=== PATIENT | male | born 1995 | race Two or more races ===

== ENCOUNTER 2017-11-14 17:21 | Emergency (ER) | payer OTHER ==
[~2017-11-14] VITALS: Ht 165.1 cm; Wt 77.1 kg
[2017-11-14 17:38] VITALS: BP 144/83
[2017-11-14] MEDS ORDERED: CYCL10TA2 PO (17:48)
[2017-11-14] MEDS ORDERED: DICL50TA4 PO (17:48)
--- NOTE | 2017-11-14 17:48 | PHYS DOC ---
Adult General Chief Complaint Chief Complaint: HEAD INJURY/TRAUMA [facility] HPI Patient is a 22 year old male with no significant medical history who presents today complaining of slight right lateral neck pain after being injured at work. Patient states he was carrying a long board with someone. He states the person slipped and fell and the board they were carrying hit patient on the head. Patient denies any loss of consciousness. He states his pain is worse on range of motion to the neck. Patient is Latvian-speaking and interpretation is provided by a friend Review of Systems Review of Systems Constitutional: Denies fever or chills [] Eyes: Denies change in visual acuity, redness, or eye pain [] HENT: Denies nasal congestion or sore throat [] Respiratory: Denies cough or shortness of breath [] Cardiovascular: No additional information not addressed in HPI [] GI: Denies abdominal pain, nausea, vomiting, bloody stools or diarrhea [] : Denies dysuria or hematuria [] Musculoskeletal: Reports right lateral neck pain Integument: Denies rash or skin lesions [] Neurologic: Reports head contusion. Denies headache, focal weakness or sensory changes [] All other systems were reviewed and found to be within normal limits, except as documented in this note. Physical Exam Physical Exam Constitutional: Well developed, well nourished, no acute distress, non-toxic appearance. [] HENT: Normocephalic, atraumatic, bilateral external ears normal, oropharynx moist, no oral exudates, nose normal. [] Eyes: PERRLA, EOMI, conjunctiva normal, no discharge. [] Neck: Normal range of motion, diffuse paraspinal muscle tenderness to the right lateral cervical spine, no midline cervical spine tenderness, supple, no stridor. [] Cardiovascular:Heart rate regular rhythm, no murmur [] Lungs & Thorax: Bilateral breath sounds clear to auscultation [] Abdomen: Bowel sounds normal, soft, no tenderness, no masses, no pulsatile masses. [] Skin: Warm, dry, no erythema, no rash. [] Back: No tenderness, no CVA tenderness. [] Extremities: No tenderness, no cyanosis, no clubbing, ROM intact, no edema. [] Neurologic: Alert and oriented X 3, normal motor function, normal sensory function, no focal deficits noted. Cranial nerves II through XII intact Psychologic: Affect normal, judgement normal, mood normal. [] Current Patient Data Vital Signs Vital Signs Date Time Temp Pulse Resp B/P (MAP) Pulse Ox O2 Delivery O2 Flow Rate FiO2 11/14/17 17:38 98.1 90 16 144/83 (103) 100 Room Air 98.1 EKG EKG [] Radiology/Procedures Radiology/Procedures [] Course & Med Decision Making Course & Med Decision Making Pertinent Labs and Imaging studies reviewed. (See chart for details) This is a 22-year-old male patient presenting to the ED today with head contusion and neck strain/sprain after a piece of board they were carrying fell on his head. There was no loss of consciousness, neurological exam is intact. Patient will be discharged with instructions to apply ice to the affected area. Discharged with diclofenac and cyclobenzaprine. Follow-up with PCP in 1-2 weeks. 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 Patient does not meet [facility] criteria for x-rays. Provided them explanation. They continued to ask for x-rays. Cervical spine x-rays were done interpreted by Dr. Pretty, negative for any acute findings. Same discharge information was provided. Dragon Disclaimer Dragon Disclaimer This electronic medical record was generated, in whole or in part, using a voice recognition dictation system. Departure Departure Impression: Primary Impression: Head contusion Additional Impression: Acute cervical sprain Disposition: 01 HOME, SELF-CARE Condition: STABLE Referrals: NO PCP (PCP) Follow-up with your doctor as needed Patient Instructions: Cervical Sprain, [id number], Contusion, [id number] Additional Instructions: You were evaluated in the emergency room after being injured at work. Take the prescribed medications as ordered. Come back to the ED at any point symptoms worsen. Apply ice to the affected areas. Scripts Diclofenac Sodium (DICLOFENAC SODIUM) 50 Mg Tablet. 1 TAB PO BID, #30 TAB 0 Refills Prov: WILLIAM HITCHCOCK APRN 11/14/17 Cyclobenzaprine Hcl (CYCLOBENZAPRINE HCL) 10 Mg Tablet 1 TAB PO TID, #30 TAB Prov: WILLIAM HITCHCOCK APRN 11/14/17 Problem Qualifiers Primary Impression: Head contusion Encounter type: initial encounter Contusion of head detail: other part of head Qualified Codes: S00.83XA - Contusion of other part of head, initial encounter Additional Impression: Acute cervical sprain Encounter type: initial encounter Qualified Codes: S13.9XXA - Sprain of joints and ligaments of unspecified parts of neck, initial encounter WILLIAM HITCHCOCK QUARRY MANAGER Nov 14, 2017 17:48
--- NOTE | 2017-11-15 02:06 | RAD ---
Cervical spine 3 views: Reason for examination: Fell while carrying heavy stuff at work. The cervical vertebral bodies are normally aligned anteriorly and posteriorly. No acute fracture or subluxation is seen. The odontoid process appears to be intact and normally centered between the lateral masses of C1. The posterior elements appear to be intact. Disc spaces are maintained. Prevertebral soft tissues are normal. IMPRESSION: No acute abnormality of the cervical spine. Electronically signed by: Kianna Forte MD (11/15/2017 2:03 AM) [facility]
== END 2017-11-14 18:24 | disposition home or self-care (01) ==
LOC: ER 17:21
DX: S13.9XXA Sprain of joints and ligaments of unspecified parts of neck, initial encounter (principal); S00.83XA Contusion of other part of head, initial encounter; W01.198A Fall on same level from slipping, tripping and stumbling with subsequent striking against other object, initial encounter; Y93.89 Activity, other specified; Y92.89 Other specified places as the place of occurrence of the external cause; Y99.0 Civilian activity done for income or pay
CPT/HCPCS: 72040; 99284